=== PATIENT | female | born 2000 | race Caucasian/White ===

== ENCOUNTER → 2019-10-23 | Outpatient (CLI) | payer BC ==
[2019-10-23 15:59] LABS: BASO % 0.5 % (0.0-1.0); EOS # 0.2 10^3/uL (0.0-0.5); HEMATOCRIT 40.6 % (36.0-47.0); LYMPH # 1.5 10^3/uL (1.5-5.0); LYMPH % 20.6 % (24.0-44.0); MEAN CORPUSCULAR HEMOGLOBIN 29.8 pg (27.0-33.0); MEAN CORPUSCULAR VOLUME 93.1 fl (80.0-96.0); MONO # 0.5 10^3/uL (0.0-0.8); MONO % 6.3 % (0.0-5.0); NEUTROPHILS # 5.2 10^3/uL (1.5-8.5); NEUTROPHILS % 70.5 % (36.0-66.0); PLATELET COUNT, AUTOMATED 308 10^3/uL (150-450); RED BLOOD COUNT 4.36 10^6/uL (4.00-5.40); WHITE BLOOD COUNT 7.4 10^3/uL (4.0-10.0)
[2019-10-23 18:11] LABS: HEPATITIS C VIRUS ABY INDEX 0.3 INDEX (<0.8); HIV 1&2 SCREEN CENTAUR NEGATIVE (NEGATIVE)
[2019-10-23 20:00] LABS: CHLAMYDIA DNA AMPLIFICATION NEGATIVE (NEGATIVE); GC DNA AMPLIFICATION NEGATIVE (NEGATIVE)
== END ==
LOC: M PLALAB 11:11
PROVIDERS: ATTEND Advanced Practice Midwife
DX: Z34.01 Encounter for supervision of normal first pregnancy, first trimester (principal); Z3A.00 Weeks of gestation of pregnancy not specified

== ENCOUNTER → 2020-01-01 | Outpatient (CLI) | payer BC ==
--- NOTE | 2020-01-07 14:36 | REP ---
INDICATION: ANATOMY COMPARISON: None. TECHNIQUE: Transabdominal obstetrical ultrasound with color Doppler evaluation. FINDINGS: Examination demonstrates a single live intrauterine in cephalic presentation. motion is identified by technologist. Placenta is noted anterior and grade 1 without evidence for placenta previa or abruption. Amniotic fluid volume is normal. Cervix measures 3.2 cm in length and appears closed.. Gestational age by LMP 19 weeks 1 day with SHIRIN 05/26/2020. Gestational age by current measurements 19 weeks 4 days with SHIRIN 05/23/2020. FHR equals 152 beats per minute. BPD: 4.6 cm 19 weeks 6 days HC: 17.5 cm 20 weeks 0 days AC: 13.8 cm 19 weeks 2 days FL: 3.0 cm 19 weeks 2 days HL: 3.0 cm 19 weeks 5 days HC/AC: 1.26 Estimated weight 287 grams (60thpercentile). Anatomical assessment demonstrates normal structures including cranium, choroid cavum, cerebellum/posterior fossa, facial features, lungs, four-chamber heart/ventricular outflow tracts, diaphragm, stomach, cord insertion/three-vessel cord, kidneys/bladder, spine, and extremities. Small bilateral choroid plexus cysts are identified measuring 7 mm and 10 mm. IMPRESSION: Single live intrauterine in cephalic presentation demonstrating appropriate estimated weight and growth. With the exception of small bilateral choroid plexus cysts, anatomical assessment is complete and normal. <Electronically signed by Abdulaziz Giles > 01/02/20 [id number]
== END ==
LOC: M WHC 14:58
PROVIDERS: ATTEND Advanced Practice Midwife
DX: O99.352 Diseases of the nervous system complicating pregnancy, second trimester (principal); Z3A.19 19 weeks gestation of pregnancy; G43.009 Migraine without aura, not intractable, without status migrainosus

== ENCOUNTER → 2020-01-20 | Outpatient (CLI) | payer BC | LOC: M PLALAB 12:28 | PROVIDERS: ATTEND Advanced Practice Midwife | DX: O28.3 Abnormal ultrasonic finding on antenatal screening of mother (principal); Z3A.00 Weeks of gestation of pregnancy not specified ==

== ENCOUNTER → 2020-02-25 | Outpatient (REF) | payer BC ==
[2020-02-25 13:50] LABS: HEMATOCRIT 35.5 % (36.0-47.0); HEMOGLOBIN 11.3 g/dl (12.0-15.5); MEAN CORPUSCULAR HEMOGLOBIN 31.1 pg (27.0-33.0); MEAN CORPUSCULAR HGB CONC 31.8 g/dl (32.0-36.5); MEAN CORPUSCULAR VOLUME 97.8 fl (80.0-96.0); PLATELET COUNT, AUTOMATED 260 10^3/uL (150-450); RED BLOOD COUNT 3.63 10^6/uL (4.00-5.40); WHITE BLOOD COUNT 7.2 10^3/uL (4.0-10.0)
== END ==
LOC: M PLALAB 09:56
PROVIDERS: ATTEND Advanced Practice Midwife
DX: Z34.02 Encounter for supervision of normal first pregnancy, second trimester (principal)

== ENCOUNTER → 2020-03-02 | Outpatient (CLI) | payer BC ==
--- NOTE | 2020-03-02 21:31 | REP ---
INDICATION: F/U ANATOMY COMPARISON: 01/01/2020 TECHNIQUE: Transabdominal obstetrical ultrasound with color Doppler evaluation. FINDINGS: Examination demonstrates a single live intrauterine in cephalic presentation. motion is identified by technologist. Placenta is noted anterior and grade 2 without evidence for placenta previa or abruption. Amniotic fluid volume is normal. Cervix measures 4.2 cm in length and appears closed.. Gestational age by LMP 27 weeks 6 days with SHIRIN 05/26/2020. Gestational age by current measurements 28 weeks 5 days with SHIRIN 05/20/2020. FHR equals 149 beats per minute. CHRISTINA: 16.3 cm Estimated weight 1148 grams (38thpercentile). Anatomical assessment demonstrates normal structures including cranium, choroid plexus, cavum, cerebellum/posterior fossa, facial features, lungs, stomach, cord insertion/three-vessel cord, kidneys/bladder. Previously identified choroid plexus cysts have resolved. IMPRESSION: Single live intrauterine in cephalic presentation demonstrating appropriate estimated weight and growth. In conjunction with prior examination anatomical assessment is complete and normal. Previously noted choroid plexus cysts resolved. <Electronically signed by Erik Arreaga > 03/02/20 [id number]
== END ==
LOC: M WHC 12:23
PROVIDERS: ATTEND Obstetrics & Gynecology
DX: Z34.82 Encounter for supervision of other normal pregnancy, second trimester (principal); Z3A.27 27 weeks gestation of pregnancy

== ENCOUNTER → 2020-05-05 | Outpatient (REF) | payer BC | LOC: M SFHCWAGY 12:45 | PROVIDERS: ATTEND Advanced Practice Midwife | DX: O35.0XX0 Maternal care for (suspected) central nervous system malformation in fetus, not applicable or unspecified (principal) ==

== ENCOUNTER → 2020-05-22 | Outpatient (CLI) | payer BC | LOC: M LABSMTC 10:35 | PROVIDERS: ATTEND Specialist | DX: Z20.822 Contact with and (suspected) exposure to COVID-19 (principal) ==

== ENCOUNTER → 2020-05-26 | Outpatient (CLI) | payer BC | LOC: M LABSMTC 12:45 | PROVIDERS: ATTEND Specialist | DX: Z20.828 Contact with and (suspected) exposure to other viral communicable diseases (principal); Z11.59 Encounter for screening for other viral diseases; Z33.1 Pregnant state, incidental ==

== ENCOUNTER 2020-05-28 07:06 | Inpatient (IN) | payer BC ==
[~2020-05-28] VITALS: Ht 162.6 cm; Wt 73.0 kg
[2020-05-28 07:43] LABS: HEMATOCRIT 36.3 % (36.0-47.0); HEMOGLOBIN 11.9 g/dl (12.0-15.5); MEAN CORPUSCULAR HEMOGLOBIN 30.4 pg (27.0-33.0); MEAN CORPUSCULAR HGB CONC 32.8 g/dl (32.0-36.5); MEAN CORPUSCULAR VOLUME 92.8 fl (80.0-96.0); PLATELET COUNT, AUTOMATED 209 10^3/uL (150-450); RED BLOOD COUNT 3.91 10^6/uL (4.00-5.40); WHITE BLOOD COUNT 11.6 10^3/uL (4.0-10.0)
[2020-05-28] MEDS ORDERED: LACTATED RINGER'S 1000 ML IV STA (07:54)
[2020-05-28] MEDS ORDERED: LIDOCAINE 1% MDV 20ML VIAL INFIL PRN (07:55)
[2020-05-28] MEDS ORDERED: METHYLERGONOVINE MALEATE 0.2 MG/ML VIAL (J2210) IM PRN (07:55)
[2020-05-28] MEDS ORDERED: BUTORPHANOL 2 MG/ML INJ (J0595) IV ONE (07:55)
[2020-05-28] MEDS ORDERED: OXYTOCIN DRIP 30 UNITS in IV 1 EA IV PRN (07:55)
[2020-05-28] MEDS ORDERED: LR 1,000 ML IV SCH (07:55)
[2020-05-28] MEDS ORDERED: PROMETHAZINE INJ 25 MG/ML VIAL (J2550) IV ONE (07:55)
--- NOTE | 2020-05-28 08:11 | HPEPDOC ---
Obstetrical History & Physical General Date of Admission May 28, 2020 at 07:24 History of Present Illness Chief Complaint: Contractions, term Information Provided By: Patient Age: 19 : 1 Term: 0 Pre-term: 0 Abortions: 0 Livin Care Care: Good Care Dating Final EDC: May 26, 2020 Final EDC by: LMP EGA at Admission: 40 (+2) Antepartum Course Admission Weight (lbs.): 160 Past Medical History Past Obstetrical History : Past Obstetrical History: Primgravida [employer]ER History: No pertinent history Past Medical History Medical History scoliosis, depression, anxiety Surgical History: Other (spinal fusion 2017 T5-L3) Family History Significant Family History: No pertinent family hx Social History Marital Status: Single Family situation: Spouse/partner home Psychosocial History: Anxiety, Depression * Smoker: non-smoker Alcohol: Denies Drugs: denies Abuse Violence Screening Have you been hit/kicked/slapp: No Have you been sexually assault: No Physical Examination Physical Examination GENERAL: Alert and oriented times three. BREAST: . ABDOMEN: Gravid and non-tender to touch. FETUS: Is vertex (VTX) by sterile vaginal examination (SVE), fetus is vertex (VTX) by Erick. EFW 7.5-8# HEART RATE: Regular rate and rhythm. LUNGS: Clear to auscultation (CTA). EXTREMITIES: No edema. No clonus. Deep tendon reflexes (DTRs) + 2. Laboratory Data 24H LABS Laboratory Tests 2 05/28/20 07:33: Nucleated Red Blood Cells % (auto) 0.0 05/28/20 07:36: Serology Scanned Report Hepatitis B Testing CBC/BMP Laboratory Tests 05/28/20 07:33 Pertinent Laboratoy Data Blood Type: O+ RBC Antibody Screen: Negative HIV: Negative Hepatitis B: Negative Hepatitis C: Negative Rapid Plasma Reagin: Nonreactive Rubella: Immune Chlamydia/Gonorrhea: Negative Group B Streptococcus: Negative Glucose Tolerance Test: 119 Diag/Inter Therapy Panorama low risk male Anatomy Ultrasound Ultrasound Date: Jan 01, 2020 Placenta Location: Anterior Normal Anatomy: No ([employer] ) Placenta Previa: No Estimated Weight (grams): 287 Other Ultrasounds 03/02/2020 EFW 1148gm, 38%, [employer] resolved Steroid Therapy Steroid Therapy: No Vaginal Examination Dilation: 6 cm (per nursing exam) Cervical Consistency: Soft Cervical Position: Middle Presentation: Cephalic presentation Assessment Heart Rate (FHR): 150 Variability: Moderate Accelerations: Positive Decelerations: None Tocometer Contractions: Yes Frequency: regular, every 2-5 min. Duration: greater than 60 seconds Strength: palpated as moderate Assessment/Plan Assessment Etelvina is a 19-year-old (G)1 para (P)0-0-0-0 at 40+2 weeks . Presents to Labor and Delivery (L&D) with complaints of contractions. Reports good movement. Denies LOF, bleeding. Fetus is active. Plan Admit and orient. Electroencephalograph Technologist and consent. Diet: Clear. Group B Streptococcus (GBS) negative. Labs and intravenous (IV) per unit protocol. Counseled on Pitocin and induction of labor (IOL). Lactated Ringers (LR): Bolus 500 mL, then at 125 mL/hr. Plans to labor ad sade due to probable inability to have epidural. Consider anesthesia consult prn Anticipate normal spontaneous delivery () C-S as appropriate. Emy Wall CNM May 28, 2020 08:05
[2020-05-28] MEDS ORDERED: OXYTOCIN 30 UNITS IN 0.9% NaCl 500ML IV BAG (J2590) As Ordered ONE (10:08)
[2020-05-28] MEDS ORDERED: ACETAMINOPHEN TAB 650MG DOSE (2X325MG) PO PRN (11:50)
[2020-05-28] MEDS ORDERED: ANUSOL HC CREAM 30GM TOP PRN (11:50)
[2020-05-28] MEDS ORDERED: ACETAMINOPHEN 500 MG TAB PO PRN (11:50)
[2020-05-28] MEDS ORDERED: MOM 30ML SUSPENSION UDC PO PRN (11:50)
[2020-05-28] MEDS ORDERED: MEASLES,MUMPS,RUBELLA VACCINE INJ (MMR-II) (90707) SC SCH (11:50)
[2020-05-28] MEDS ORDERED: RHOGAM 300 MCG (1500 IU) INJ (J2790) IM SCH (11:50)
[2020-05-28] MEDS ORDERED: IBUPROFEN 600MG TAB PO PRN (11:50)
--- NOTE | 2020-05-28 12:03 | DNPDOC ---
[facility] Delivery Note Delivery Note DATE OF DELIVERY: 05/28/2020 PREDELIVERY DIAGNOSIS: 40+2/7 weeks' gestation and labor. POST DELIVERY DIAGNOSIS: Delivered. PROCEDURE: Spontaneous vaginal delivery. PROVIDER: Emy Wall CNM ANESTHESIA: None. ESTIMATED BLOOD LOSS: 500 mL. FINDINGS: 8 pound 1 ounce, 3660gm male infant, Score 9/10, no nuchal cord, compound right posterior arm. DELIVERY SUMMARY: Patient is a 19-year-old 1 now para 1-0-0-1 who was admitted to labor and delivery for active labor. Report onset regular contractions 0500. She utilized stadol and phenergan for labor coping. Spontaneous rupture of membranes for clear fluid 0821. Fully dilated 1000. Viable male delivered SUHA, restituted to ROP, compound right posterior arm @ 1103. Shoulders delivered with ease. Placenta delivered woods, intact with 3 v cord. Fundus firmed with massage and premixed IV pitocin bolus. Misoprostol 1000mcg LA placed due to continued trickle with excellent control of bleeding. Cervix, vagina, perineum inspected. 2nd degree perineal laceration and right sulcus tear infiltrated with lidocaine. Reapproximated with 3-0 vicryl rapide. Sponge, sharp and instrument count correct. EBL 500ml. Parents are naming their son Lg. Emy Wall CNM May 28, 2020 12:03
[2020-05-28] MEDS: METHYLERGONOVINE MALEATE 0.2 MG TAB PO SCH ×2 (12:49→18:32)
[2020-05-28 18:02] VITALS: BP_SYST 112; BP_SYST 146; BP_DIAS 60; BP_DIAS 73
[2020-05-28] MEDS: DOCUSATE SODIUM 100MG CAPSULE PO PRN (19:33)
[2020-05-28] MEDS: DIBUCAINE 1% OINTMENT 30GM TOP PRN (19:34)
[2020-05-28] MEDS: IBUPROFEN 800 MG TAB PO PRN (22:05)
[2020-05-29] MEDS: METHYLERGONOVINE MALEATE 0.2 MG TAB PO SCH ×4 (00:27→17:39)
[2020-05-29 06:00] VITALS: BP 105/55
--- NOTE | 2020-05-29 06:45 | IPNPDOC ---
Text Note Date of Service The patient was seen on 05/29/20. NOTE PP#1 Feels well. Happy. . Adequate pain management. Voiding VSS, afebrile, normotensive Breasts soft,nipples intact Fundus firm, NT, down 1 FB Lochia rubra light without odor Perineum well approximated with mild edema Legs negative PP #1 Routine care. Anticipate D/C in am VS,Fishbone, I+O VS, Fishbone, I+O Laboratory Tests 05/28/20 07:33 Vital Signs Date Time Temp Pulse Resp B/P (MAP) Pulse Ox O2 Delivery O2 Flow Rate FiO2 05/29/20 06:00 99.0 89 18 105/55 (72) 98 Room Air I&O- Last 24 Hours up to 6 AM 05/29/20 06:00 Output Total 500 ml Balance -500 ml Emy Wall CNM May 29, 2020 06:45
[2020-05-29] MEDS: PRENATAL VITAMINS CHEWABLE TABLET PO SCH (09:00)
[2020-05-29] MEDS: IBUPROFEN 800 MG TAB PO PRN ×2 (10:10→23:17)
[2020-05-29 17:53] VITALS: BP 109/62
[2020-05-29] MEDS: DOCUSATE SODIUM 100MG CAPSULE PO PRN (19:51)
[2020-05-29] MEDS ORDERED: METHYLERGONOVINE MALEATE 0.2 MG TAB PO PRN (20:55)
[2020-05-30 06:00] VITALS: BP 92/49
[2020-05-30] MEDS: DIBUCAINE 1% OINTMENT 30GM TOP PRN (07:53)
[2020-05-30] MEDS: PRENATAL VITAMINS CHEWABLE TABLET PO SCH (07:53)
[2020-05-30] MEDS: IBUPROFEN 800 MG TAB PO PRN (12:35)
== END 2020-05-30 14:15 | disposition home or self-care (01) | DRG 560 ==
LOC: M LDO 07:06 → M LDI 07:24 → M OBS 16:35
PROVIDERS: ADMIT Obstetrics & Gynecology; ATTEND Obstetrics & Gynecology
PROC: 10E0XZZ Delivery of Products of Conception, External Approach (ICD-10-PCS; principal; 2020-05-28)
PROC: 0KQM0ZZ Repair Perineum Muscle, Open Approach (ICD-10-PCS; 2020-05-28)
DX: O48.0 Post-term pregnancy (principal); Z37.0 Single live birth; Z3A.40 40 weeks gestation of pregnancy; O32.6XX0 Maternal care for compound presentation, not applicable or unspecified; O70.1 Second degree perineal laceration during delivery

== ENCOUNTER → 2020-10-07 | Outpatient (REF) | payer OTHER, BC ==
[2020-10-07 15:51] LABS: GC DNA AMPLIFICATION INVALID (NEGATIVE)
== END ==
LOC: M SFHCWAGY 13:06
PROVIDERS: ATTEND Advanced Practice Midwife
DX: Z12.4 Encounter for screening for malignant neoplasm of cervix (principal); R87.612 Low grade squamous intraepithelial lesion on cytologic smear of cervix (LGSIL)

== ENCOUNTER → 2020-12-07 | Outpatient (REF) | payer OTHER, BC | LOC: M SFHCWAGY 17:10 | PROVIDERS: ATTEND Obstetrics & Gynecology | DX: R87.612 Low grade squamous intraepithelial lesion on cytologic smear of cervix (LGSIL) (principal) ==

== ENCOUNTER → 2022-07-27 | Outpatient (REF) | payer OTHER ==
[2022-07-28 12:04] LABS: GC DNA AMPLIFICATION NEGATIVE (NEGATIVE)
== END ==
LOC: M SFHCWAGY 10:15
PROVIDERS: ATTEND Advanced Practice Midwife
DX: Z12.4 Encounter for screening for malignant neoplasm of cervix (principal)